=== PATIENT | male | born 1980 | race African-American/Black ===

== ENCOUNTER 2020-12-19 15:31 | Emergency (ER) | payer SELFPAY ==
[2020-12-19 15:45] VITALS: BP 136/83; PULSE 90; TEMP 98.8; BMI 23.1
[2020-12-19] MEDS ORDERED: SODIUM CHLORIDE 1,000 ML IV ONE (17:01)
[2020-12-19] MEDS ORDERED: HYDROmorphone HCL CARPU-JECT 2 MG/1 ML DISP.SYRIN IVPUSH ONE ×2 (17:01→17:46)
[2020-12-19] MEDS ORDERED: HYDROmorphone HCl 2 MG/ML VIAL ONE (17:23)
[2020-12-19 17:53] LABS: BASO % 0.6 % (0-2.0); EOS % 0.6 % (0-4.5); HEMATOCRIT 31.5 % (35.4-49); HEMOGLOBIN 9.6 GM/dL (11.7-16.9); LYMPH % 42.2 % (8-40); MCH 20.1 pg (25.7-33.7); MCHC 30.4 g/dl (32.0-35.9); MEAN CELL VOLUME 65.9 fl (80-96); MEAN PLT VOLUME 8.1 fl (7.5-11.1); MONO % 14.1 % (3.8-10.2); NEUT % 42.5 % (42.8-82.8); PLATELET COUNT 275 10^3/uL (134-434); RBC 4.78 M/mm3 (4.00-5.60); RDW 20.1 % (11.9-15.9); RETICULOCYTES 1.95 % (0.5-1.5); WHITE BLOOD COUNT 3.1 K/mm3 (4.0-10.0)
[2020-12-19 18:10] LABS: CHLORIDE 105 mmol/L (98-107); SODIUM 138 mmol/L (136-145)
[2020-12-19 18:12] LABS: ALBUMIN 4.2 g/dl (3.4-5.0); ANION GAP 9 MMOL/L (8-16); BLOOD UREA NITROGEN 7.1 mg/dL (7-18); CALCIUM 9.2 mg/dL (8.5-10.1); CO2 25 mmol/L (21-32); GLUCOSE,RANDOM 93 mg/dL (74-106)
[2020-12-19 18:15] LABS: CREATININE 0.9 mg/dL (0.55-1.3); SGOT/AST 25 U/L (15-37); SGPT/ALT 22 U/L (13-61)
[2020-12-19 18:17] LABS: TOT PROT 7.7 g/dl (6.4-8.2)
[2020-12-19 18:18] LABS: ALK PHOS 89 U/L (45-117)
[2020-12-19 18:20] LABS: BILIRUBIN,TOTAL 0.4 mg/dL (0.2-1)
[2020-12-19 18:54] LABS: ANISOCYTOSIS 3+; MACROCYTOSIS 0; PLATELET ESTIMATE NORMAL; TARGET CELLS 1+
== END 2020-12-19 18:46 | disposition left against medical advice (07) ==
LOC: JER 15:31
PROC: 3E033GC Introduction of Other Therapeutic Substance into Peripheral Vein, Percutaneous Approach (ICD-10-PCS; principal; 2020-12-19)
PROC: 3E033GC Introduction of Other Therapeutic Substance into Peripheral Vein, Percutaneous Approach (ICD-10-PCS; 2020-12-19)
PROC: 3E033NZ Introduction of Analgesics, Hypnotics, Sedatives into Peripheral Vein, Percutaneous Approach (ICD-10-PCS; 2020-12-19)
PROC: 3E033NZ Introduction of Analgesics, Hypnotics, Sedatives into Peripheral Vein, Percutaneous Approach (ICD-10-PCS; 2020-12-19)
PROC: 3E0337Z Introduction of Electrolytic and Water Balance Substance into Peripheral Vein, Percutaneous Approach (ICD-10-PCS; 2020-12-19)
DX: D57.219 Sickle-cell/Hb-C disease with crisis, unspecified (principal); R07.9 Chest pain, unspecified
CPT/HCPCS: 36415; 71045-TC-FY; 80053; 82550; 82553; 84484; 85025; 85045; 93005; 93010; 99285-25